=== PATIENT | male | born 1970 | race Caucasian/White ===

== ENCOUNTER 2016-03-18 08:58 | Inpatient (IN) ==
[2016-03-18] MEDS ORDERED: ONDANSETRON 4 MG/2 ML VIAL ONE ×3 (09:09→14:41)
[2016-03-18] MEDS ORDERED: HYDROmorphone 2 MG/1 ML VIAL ONE ×3 (09:09→14:41)
--- NOTE | 2016-03-18 09:18 | Emergency Department Note ---
Omid Amaya Meredith, am scribing for, and in the presence of, Manny Harris MD 09: 16. Kimberly Amaya James D, MD, personally performed the services described in this documentation, ascribed by Claudette Anne in my presence, and it is both accurate and complete 918 . Arrival - Arrival Chief Complaint: Extremity Injury Stated Complaint: BROKEN LEG ED Nursing Triage Note: slid 10 feet down a roof and fell 13feet onto left leg. has not looked at leg but reports he can feel that its like rubbing together. has it splinted. Mode of Arrival: Wheelchair Limitations: No Limitations Source: Patient, Significant other (), RN Notes Reviewed - History of Present Illness HPI Narrative: Pt is a 46 y/o white male reporting to the ED with c/o fracture to the left leg after falling 13 ft off a roof while at work. He denies any back pain. states he was given Ibupofen and Zofran at the clinic in [place]. Pt states he last ate at 0530 this morning. states he has been on Prednisone for the past 5 days. He is a current everyday smoker. Onset (ago): hour(s) Consistency: constant Severity: severe Quality: sharp Allergies/Adverse Reactions: Allergies Allergy/AdvReac Type Severity Reaction Status Date / Time No Known Allergies Allergy Unverified 03/18/16 09:02 Review of System - Review of System 12 point system: reviewed and no additional remarkable complaints except as stated - Review of System Musculoskeletal: Present: as per HPI, leg pain (left lower leg fracture) Medical,Surgical,& Family Hx - Medical History Neurology: No history of: TIA - Family History Family History: Denies;: Additional Family History - Social History Smoking Status: Current every day smoker Exam Physical Examination: GENERAL: This is a well-nourished, well-developed white male in mild distress. VITAL SIGNS: Temperature: 98.5, Pulse: 67, Respirations: 18, Blood pressure: 112 /73, O2 Saturation: 98 HEENT: Head is normocephalic and atraumatic. Pupils are equally round and reactive to light. Extraocular movement are intact. Oropharynx is benign with moist mucous membranes. NECK: Neck is soft and supple without tenderness. There are no masses. There is no lymphadenopathy. LUNGS: Lungs are clear to auscultation bilaterally. Chest rises symmetrically. There is no chest wall tenderness. CV: Heart is regular rate and rhythm without murmurs, rubs, or gallops. ABDOMEN: Abdomen is soft, non-tender to palpation. There are no abnormal masses palpated. There is no organomegaly. Bowel sounds are present and active. SKIN: Skin is warm and dry. No rash. EXTREMITIES: Obvious deformity to the left tibia and fibula. NEUROLOGIC: Awake, alert, and oriented x4. Cranial nerves II through XII are grossly intact. There are no motorsensory deficits. PSYCHIATRIC: Normal affect. Normal mood. Vital Signs: Vital Signs Temperature 98.5 F 03/18/16 08:58 Pulse Rate 67 03/18/16 08:58 Respiratory Rate 18 03/18/16 08:58 Blood Pressure 112/73 03/18/16 08:58 O2 Sat by Pulse Oximetry 98 03/18/16 08:58 Course - Consultations Consultation #1: Discussed with Dr. Moreno. Patient will be admitted to his service. Time: 09:52 Results - Labs CBC & BMP: 03/18/16 09:14 Lab Results: I have reviewed the patients labs Labs: Laboratory Tests 03/18/16 09:14 WBC 10.3 RBC 4.71 Hgb 14.1 Hct 43.1 Plt Count 227 Neut % (Auto) 74.3 H Lymph % (Auto) 19.4 L Neut # (Auto) 7.6 H - EKG EKG results: interpreted by ERMD - Impressions Normal ST-T waves, normal axis. Normal EKG - Diagnostic Findings Procedure: Chest x-ray: image reviewed by me, X-ray: image reviewed by me (Left tib-fib x-ray: Left foot x-ray:) Disposition Clinical Impression: Open fracture of left tibia and fibula Case discussed with: patient, patient's family Disposition: Still a Patient Condition: Stable Time of Disposition: 09:52
[2016-03-18] MEDS ORDERED: GENTAMICIN INJ 160 MG in SODIUM CHLORIDE 0.9% 100 ML IV STA (09:21)
[2016-03-18] MEDS ORDERED: DIPH/TET/ACEL PERT BOOSTER VACCINE 0.5 ML VIAL IM ONE ×2 (09:21→09:25)
[2016-03-18 09:24] LABS: Basophils % 0.4 % (0.0-0.8); Eosinophils % 0.2 % (0.00-10.9); Hematocrit 43.1 VOL% (42.0-52.0); Hemoglobin 14.1 GM/DL (14.0-18.0); Immature Granulocytes % 1.4 %; Immature Granulocytes Absolute 0.14 #; Lymphocytes % 19.4 % (21.2-54.2); Mean Corpuscular HGB Conc 32.7 GM/DL (32-36); Mean Corpuscular Hemoglobin 30 PG (27-34); Mean Corpuscular Volume 91.5 FL (87-102); Mean Platelet Volume 10.7 FL (9.6-12.0); Monocytes # 0.4 10*3/uL (0.11-0.8); Monocytes % 4.3 % (1.7-12.7); Neutrophils # 7.6 10*3/uL (1.4-7.4); Neutrophils % 74.3 % (38.7-73.9); Platelet Count 227 10*3/uL (130-400); Red Blood Count 4.71 10*6/uL (3.8-5.5); White Blood Count 10.3 10*3/uL (4.5-13.71)
[2016-03-18] MEDS ORDERED: ceFAZolin 1,000 MG VIAL ONE (09:25)
--- NOTE | 2016-03-18 09:31 | EKG Report ---
Stationary ECG Study [facility] ER Test Date: 03/18/2016 9:29:39 AM Pat Name: TIMOTHY RICHTER Department: Room: Gender: M Radio Host: JOHN : 1970 Requested by: Manny Plascencia Order Number: [id number] Renaldo MD: NYASIA WHITE Intervals [place] Rate: 64 P: 72 NH: 144 QRS: 65 QRSD: 96 T: 57 QT: 366 QTc: 376 Interpretive Statements SINUS RHYTHM Electronically Signed On 03-19-16 09:50:38 PIT STEWARD by NYASIA WHITE [email or web address]
[2016-03-18] MEDS ORDERED: ONDANSETRON 4 MG/2 ML VIAL IV STA (09:33)
[2016-03-18] MEDS ORDERED: HYDROmorphone 2 MG/1 ML VIAL IV STA ×3 (09:33→10:23)
[2016-03-18 09:41] LABS: INR 1.3; PT Patient Result 13.4 SECS
[2016-03-18 09:52] LABS: Albumin 3.7 G/DL (3.4-5.0); Bilirubin,Total 0.4 MG/DL (0.2-1.0); Osmolality,Calculated 291.6 MOS/KG (273-304); Potassium 4.4 MMOL/L (3.5-5.1); Total Protein 6.8 G/DL (6.4-8.3)
--- NOTE | 2016-03-18 10:01 | XRay Report ---
XR chest 1V portable Indication: Respiratory preop evaluation Comparison: None Technique: 2 frontal views of the chest Findings: Heart size appears within normal limits. No focal consolidation, pleural effusion, or pneumothorax. Osseous and surrounding soft tissue structures demonstrate no acute abnormality. There is mild dextroconvex curvature of the spine with apex in the lower thoracic region. IMPRESSION: No acute cardiopulmonary process demonstrated. PROCEDURE INTERPRETED AT [facility] DEPARTMENT OF RADIOLOGY Final Report Signed by: Dr Armando Kapoor
--- NOTE | 2016-03-18 10:04 | XRay Report ---
XR foot 2V LT, XR tibia fibula LT Indication: Fall/tib-fib fracture Comparison: None Technique: Frontal and lateral views of the left tib-fib. Frontal and lateral views of the left foot. Findings: Acute, mildly comminuted, mildly displaced fracture through the proximal fibular diaphysis. Acute, moderately displaced, mildly comminuted fracture or involving the distal tibial diaphysis. Surrounding subcutaneous emphysema suggests open/compound injury. IMPRESSION: As above. PROCEDURE INTERPRETED AT [facility] DEPARTMENT OF RADIOLOGY Final Report Signed by: Dr Armando Kapoor
[2016-03-18] MEDS ORDERED: GENTAMICIN 80 MG/2 ML VIAL ONE (10:09)
--- NOTE | 2016-03-18 10:15 | Orthopedic History & Physical ---
Assessment and Plan (1) Open fracture of left tibia and fibula Status: Acute Assessment and plan: Patient has received tetanus and antibiotics in the emergency department. I have recommended irrigation and debridement with intramedullary nailing of the tibia. Risks and benefits were discussed, all questions were answered to his satisfaction. Risks, alternatives, and benefits to undergoing this procedure were discussed in great detail, the patient voiced understanding desire proceed. Risks discussed included, but were not limited to, bleeding, infection, damage to arteries and nerves, nonunion, malunion, need for revision surgery, as well as medical complications. I explained at length his increased risk for infection due to the open fracture as well as his increased risks of infection and nonunion due to his smoking. He 'll be nonweightbearing on the left leg for approximately 6 weeks. Current Visit: Yes Qualifiers: Encounter type: initial encounter Open fracture type: open type I or II Qualified Code(s): S82.402B - Unspecified fracture of shaft of left fibula, initial encounter for open fracture type I or II; S82.202B - Unspecified fracture of shaft of left tibia, initial encounter for open fracture type I or II History of Present Illness Chief complaint: broken leg History of present illness: Mr. Carbajal is a 46 year old male who had a fall from a ladder earlier today. Follow was greater than 10 feet. Only complains of pain in the left leg. He was seen in the local emergency department and transferred here for further care. He smokes daily. Has a previous fracture of his right leg. Home Medications Medication Instructions Recorded Confirmed Type Escitalopram [Lexapro] 10 mg PO DAILY 03/18/16 03/18/16 History Gabapentin Cap/Tab [Neurontin 300 mg PO TID 03/18/16 03/18/16 History Cap/Tab] Multivit-Min/FA/Lycopene/Lut 2 each PO QAM 03/18/16 03/18/16 History [Centrum Silver Tablet] Phenylephrine/Chlorpheniramine 1 each PO BID 03/18/16 03/18/16 History [Ed-A-Hist 4 mg-10 mg Tablet] clonazePAM TAB [KlonoPIN] 0.5 mg PO BID 03/18/16 03/18/16 History predniSONE TAB [PredniSONE] 20 mg PO DAILY 03/18/16 03/18/16 History Allergies Allergy/AdvReac Type Severity Reaction Status Date / Time No Known Allergies Allergy Unverified 03/18/16 09:02 12 point system: reviewed and no additional remarkable complaints except as stated Medical,Surgical,& Family Hx - Medical History Neurology: No history of: TIA - Family History Family History: Denies;: Additional Family History - Social History Smoking Status: Current every day smoker Exam - Constitutional Vitals: Period Temp Pulse Resp BP Sys/Archer Pulse Ox Last 24 Hr 98.5 F 67 18 112/73 98 Exam: General appearance: no acute distress Head exam: normal inspection Eye exam: EOMI Neck exam: normal inspection Respiratory exam: clear to auscultation bilaterally Cardiovascular exam: regular GI/Abdominal exam: normal bowel sounds Upper extremities: Full range of motion, both active and passive. No crepitus no pain. Right lower extremity: Nontender to palpation, full range of motion of hip, knee , ankle, and foot. Left lower extremity: bandage place over the distal tibia. Nontender to palpation the knee, no effusion noted there. 2+ dorsalis pedis pulse, brisk capillary refill in the foot. Sensation intact, dorsal and plantar aspects of the foot. 2cm wound over medial tibia. Results - Labs CBC & BMP: 03/18/16 09:14 03/18/16 09:14 - Diagnostic Findings Procedure: X-ray: image reviewed by me (spiral fracture of left distal tibial shaft with associated proximal fibular fracture)
[2016-03-18] MEDS ORDERED: FAMOTIDINE 20 MG/2 ML VIAL IV ONE (10:30)
[2016-03-18] MEDS ORDERED: FAMOTIDINE 20 MG/2 ML VIAL IV STA (11:06)
[2016-03-18] MEDS ORDERED: SODIUM CHLORIDE 0.9% 1,000 ML IV STA (11:06)
[2016-03-18] MEDS ORDERED: GLYCOPYRROLATE 0.4 MG/2 ML VIAL ONE (12:07)
[2016-03-18] MEDS ORDERED: LIDOCAINE 2% 5 ML VIAL ONE (12:07)
[2016-03-18] MEDS ORDERED: ROCURONIUM 100 MG/10 ML VIAL IV ONE (12:07)
[2016-03-18] MEDS ORDERED: PROPOFOL 200 MG/20 ML VIAL IV ONE (12:07)
[2016-03-18] MEDS ORDERED: PHENYLEPHRINE 1 MG/10 ML SYRINGE IV ONE (12:07)
[2016-03-18] MEDS ORDERED: NEOSTIGMINE 10 MG/10 ML VIAL ONE (12:07)
[2016-03-18] MEDS ORDERED: SUCCINYLCHOLINE 200 MG/10 ML VIAL ONE (12:07)
--- NOTE | 2016-03-18 13:57 | XRay Report ---
Exam: XR tibia fibula LT Date: 03/18/2016 Indication: Intramedullary nail left tibia and fibula Comparison: 03/18/2016 Technical: Fluoroscopy images Findings: 42 seconds fluoroscopy time provided to Dr. Moreno for placement of intramedullary cait stabilize proximally to 3 screws and distally with 2 threaded screws. Small butterfly fragment present along the distal medial tibia. No new fractures are present. 7 total images obtained Impression: Stabilized distal spiral tibia fracture with intramedullary cait and screws PROCEDURE INTERPRETED AT [facility] DEPARTMENT OF RADIOLOGY Final Report Signed by: Dr. Dharmesh Samaniego
[2016-03-18] MEDS ORDERED: LACTATED RINGERS 1,000 ML IV ONE (14:26)
[2016-03-18] MEDS ORDERED: fentaNYL 100 MCG/2 ML VIAL ONE (14:26)
[2016-03-18] MEDS ORDERED: SEVOFLURANE 1 UNIT/15 MINUTE INH ONE (14:26)
[2016-03-18] MEDS ORDERED: MIDAZOLAM 2 MG/2 ML VIAL ONE (14:26)
--- NOTE | 2016-03-18 14:35 | Anesthesia ---
Anesthesia Post OP - Post Ansesthetic Evaluation Patient seen in post op: Yes Resp: within normal limits CV: within normal limits Mental: within normal limits Temp: within normal limits Osos-Ch-Ukrgeqxcn: within normal limits Nausea and Vomiting: within normal limits Pain: within normal limits
[2016-03-18] MEDS ORDERED: MEPERIDINE 25 MG/1 ML VIAL ONE (14:44)
[2016-03-18] MEDS: HYDROmorphone 2 MG/1 ML VIAL IV PRN ×4 (14:55→15:10)
[2016-03-18] MEDS ORDERED: ONDANSETRON 4 MG/2 ML VIAL IV PRN ×2 (15:04→16:20)
[2016-03-18] MEDS ORDERED: MEPERIDINE 25 MG/1 ML VIAL IV PRN (15:04)
[2016-03-18] MEDS ORDERED: ePHEDrine 50 MG/ML AMP ONE (16:05)
[2016-03-18] MEDS ORDERED: MORPHINE PCA 30 MG/30 ML SYRINGE IV SCH (16:20)
--- NOTE | 2016-03-18 16:49 | XRay Report ---
Exam: XR tibia fibula LT Date: 03/18/2016 4:20 PM Indication: Postop pinning Comparison: 03/18/2016 9:29 AM Technical:AP lateral Findings: Intramedullary cait has been placed stabilizing the distal tibia fracture. 2 threaded screws are present proximally and surgical clips are present. 2 Screws are present distally and surgical clips at as well. Lower leg cast has been applied. Proximal fibula fracture is present in the proximal one third of the fibula with spiral fracture present. Joint at knee is unremarkable. The joint at the ankle appears intact Impression: 1. Status post the posterior intramedullary cait stabilizing the fracture of the tibia with the fibula fracture again noted. The cast has been applied. 2. No new fractures present PROCEDURE INTERPRETED AT [facility] DEPARTMENT OF RADIOLOGY Final Report Signed by: Dr. Dharmesh Samaniego
[2016-03-18] MEDS: GABAPENTIN 300 MG CAPSULE PO SCH ×2 (17:00→21:33)
[2016-03-18] MEDS: SODIUM CHLORIDE 0.9% 1,000 ML IV SCH (17:00)
[2016-03-18] MEDS: ceFAZolin 2,000 MG in PREMIX 1 EACH IV SCH (17:16)
[2016-03-18] MEDS: ACETAMINOPHEN 500 MG TABLET PO SCH ×2 (17:33→23:57)
[2016-03-18] MEDS ORDERED: CHLORPHENIRAMINE PO SCH (21:00)
[2016-03-18] MEDS ORDERED: [UNRECOGNIZED DRUG - OTHER] PO SCH (21:00)
[2016-03-18] MEDS ORDERED: PHENYLEPHRINE PO SCH (21:00)
[2016-03-18] MEDS: clonazePAM 0.5 MG TABLET PO SCH (21:34)
[2016-03-19] MEDS: ceFAZolin 2,000 MG in PREMIX 1 EACH IV SCH ×3 (02:15→18:29)
[2016-03-19] MEDS: ACETAMINOPHEN 500 MG TABLET PO SCH ×2 (06:28→11:32)
[2016-03-19] MEDS: SODIUM CHLORIDE 0.9% 1,000 ML IV SCH ×2 (06:37)
--- NOTE | 2016-03-19 07:06 | Orthopedic Progress Note ---
Assessment and Plan (1) Open fracture of left tibia and fibula Status: Acute Assessment and plan: cont IV Abx change splint tomorrow d/c tomorrow OOB w PT, NWB LLE Current Visit: Yes Qualifiers: Encounter type: initial encounter Open fracture type: open type I or II Qualified Code(s): S82.402B - Unspecified fracture of shaft of left fibula, initial encounter for open fracture type I or II; S82.202B - Unspecified fracture of shaft of left tibia, initial encounter for open fracture type I or II Orthopedics - Subjective Interval history: Pain in knee/thigh NVI distally, sanguinous drainage on splint Exam - Constitutional Vitals: Period Temp Pulse Resp BP Sys/Archer Pulse Ox Last 24 Hr 97.4 F-99.5 F 68-93 10-20 96-136/52-81 95-100 Results - Labs CBC & BMP: 03/18/16 09:14 03/18/16 09:14 Specialty Discharge - Follow Up or Referrals Follow up with: Jorge Moreno MD [Physician] -
[2016-03-19] MEDS: MULTIVITAMIN (CENTRUM) TABLET PO SCH (08:49)
[2016-03-19] MEDS: GABAPENTIN 300 MG CAPSULE PO SCH ×3 (08:50→21:08)
[2016-03-19] MEDS: clonazePAM 0.5 MG TABLET PO SCH ×2 (08:50→21:07)
[2016-03-19] MEDS: ESCITALOPRAM 10 MG TABLET PO SCH (08:50)
[2016-03-19] MEDS: ENOXAPARIN 40 MG/0.4 ML SYRINGE SUBCUT SCH (08:52)
[2016-03-19] MEDS: HYDROmorphone 2 MG/1 ML VIAL IV PRN ×2 (10:32→21:08)
[2016-03-19] MEDS: MAGNESIUM HYDROXIDE SUSP 30 ML UDCUP PO PRN ×2 (16:17→22:29)
[2016-03-20] MEDS: ceFAZolin 2,000 MG in PREMIX 1 EACH IV SCH ×2 (02:10→11:00)
--- NOTE | 2016-03-20 07:52 | Discharge Summary ---
Hospital Course - Hospital Course Hospital Course: 46-year-old male admitted to the hospital with an open left tib-fib fracture after a fall from a roof. He was taken to the operating suite where he underwent irrigation and debridement and fixation of the fracture. He was transferred to the floor in stable condition postoperatively. He received schedule antibiotics for 48 hours and retained thromboprophylaxis. He was seen by physical therapy for ambulation as he was nonweightbearing on the left lower extremity. He did have some postoperative drainage on postoperative day 1, his splint was removed, his dressings were changed and he was placed in a boot and continued nonweightbearing. At the time of discharge his wounds were clean and dry he was neurovascularly intact. Diagnosis - Discharge Diagnosis (1) Open fracture of left tibia and fibula Status: Acute Specialty Discharge - Follow Up or Referrals Follow up with: Jorge Moreno MD [Physician] - 04/01/16 1:30 pm (10-14 days) Discharge Plan - Discharge Data Disposition: Disch To Home/Self Care Condition at Discharge: Stable Discharge Diet: advance to your usual diet Activity: ambulate only with your walker Hygiene: may shower Weight Bearing at Discharge: non-weight bearing Driving: not until seen by doctor Contact your physician if you experience:: fever over 101, Difficulty voiding, Redness or swelling, Nausea/Vomiting, Shortness of breath, Bleeding, pain uncontrolled by pain medications Wound / Dressing Care Instructions: Ok to shower every other day, no tub soaks. Apply neosporin and clean, dry gauze to wounds - Discharge Medications New HYDROcodone/ACETAMIN 7.5-325 [[place] 7.5-325] 1 - 2 tablet PO Q4H PRN #60 tablet PRN Reason: Pain Moderate (4-7) cephALEXin [Keflex] 500 mg PO Q8HR #15 capsule Continue Multivit-Min/FA/Lycopene/Lut [Centrum Silver Tablet] 2 each PO QAM Gabapentin Cap/Tab [Neurontin Cap/Tab] 300 mg PO TID Escitalopram [Lexapro] 10 mg PO DAILY clonazePAM TAB [KlonoPIN] 0.5 mg PO BID Phenylephrine/Chlorpheniramine [Ed-A-Hist 4 mg-10 mg Tablet] 1 each PO BID Discontinued predniSONE TAB [PredniSONE] 20 mg PO DAILY - Follow Up or Referral Follow Up: Jorge Moreno MD [Physician] - 04/01/16 1:30 pm (10-14 days) - Forms/Instructions Instructions: Leg Fracture (DC) Additional Discharge Instructions: RASHI ROJAS. phuong LLE Exam - Constitutional Vitals: Period Temp Pulse Resp BP Sys/Archer Pulse Ox Last 24 Hr 97.8 F-98.9 F 59-83 16-18 103-114/56-74 92-98 DS: Provider Date of admission: 03/18/16 09:54 Primary care physician: . No PCP Attending physician on admission: Jorge Moreno MD Consults: 03/18/16 16:20 Consult to Anesthesiology [CONS] Routine Consulting Provider: Reason for Anesthesiology: Pre-op Clearance Consult to Occupational Therapy [CONS] Routine Reason for Occupational Therapy: Evaluate and Treat Consult to Physical Therapy [CONS] Routine Reason for Physical Therapy: Evaluate and Treat Start Therapy: Tomorrow Consult Comment: RASHI ROJAS 03/18/16 16:28 Consult to Pharmacy [CONS] Routine Reason for Pharmacy Consult: Adjust Meds Renal Funct Discharging clinician: Jorge Moreno MD
[2016-03-20 08:05] VITALS: BP 124/76
[2016-03-20] MEDS: HYDROmorphone 2 MG/1 ML VIAL IV PRN (08:05)
[2016-03-20] MEDS: MULTIVITAMIN (CENTRUM) TABLET PO SCH (09:21)
[2016-03-20] MEDS: clonazePAM 0.5 MG TABLET PO SCH (09:22)
[2016-03-20] MEDS: ESCITALOPRAM 10 MG TABLET PO SCH (09:22)
[2016-03-20] MEDS: ENOXAPARIN 40 MG/0.4 ML SYRINGE SUBCUT SCH (09:22)
[2016-03-20] MEDS: GABAPENTIN 300 MG CAPSULE PO SCH (09:22)
== END 2016-03-20 09:53 | disposition home or self-care (01) | DRG 494 ==
LOC: N.ED 08:58 → N.EDINP 09:54 → N.3E 10:50
PROVIDERS: ADMIT Orthopaedic Surgery; ATTEND Orthopaedic Surgery